=== PATIENT | female | born 1940 | race Caucasian/White ===

== ENCOUNTER 2017-01-20 14:12 | Inpatient (IN) | payer OTHER ==
[~2017-01-20] VITALS: Ht 165.1 cm; Wt 50.3 kg
[~2017-01-20 14:12] MED LIST: ALBUTEROL2.5 MG/3 M INH; ASPIR 8181 MG PO; ATROVENT INH S2.5 ML INH; DILANTIN100 MG PO; DULERA 100 MCG8.8 GM INH; ELAVIL 50 MG TA50 MG PO; ENSURE ORIGINA237 ML PO; EXCEDRIN EXTRA1 EACH PO; FEOSOL325 MG PO; FLEXERIL 10 MG10 MG PO; LACTINEX PACKET1 PKT PO; LOPRESSOR 25 MG25 MG PO; MELATONIN 3 MG1 EAC1 PO; METOPROLOL TART25 MG PO; OCUFLOX5 ML OD; PHENERGAN 25 MG25 M1 PO; PROTONIX 40 MG40 M1 PO; SPIRIVA18 MCG INH; TRAMADOL HCL50 MG PO; ULTRAM50 MG PO; VALIUM 2 MG TAB2 MG PO; ZESTRIL5 MG PO
[2017-01-20 16:33] LABS: HEMOGLOBIN 7.6 gm/dl (12.3-15.3); RED BLOOD COUNT 2.7 M/UL (4.00-5.10); WHITE BLOOD COUNT 5.9 K/UL (4.5-11.0)
[2017-01-21 02:15] LABS: HEMOGLOBIN 7.9 gm/dl (12.3-15.3)
[2017-01-21 09:08] LABS: HEMOGLOBIN 7.8 gm/dl (12.3-15.3); RED BLOOD COUNT 2.75 M/UL (4.00-5.10); WHITE BLOOD COUNT 8.7 K/UL (4.5-11.0)
[2017-01-21 10:52] LABS: HEMOGLOBIN 7.3 gm/dl (12.3-15.3)
[2017-01-21] MEDS ORDERED: NEURONTIN 100100 MG PO (13:17)
[2017-01-21] MEDS ORDERED: AMITRIPTYLINE H50 MG PO (13:19)
[2017-01-22 07:10] LABS: HEMOGLOBIN 8.9 gm/dl (12.3-15.3); RED BLOOD COUNT 3.15 M/UL (4.00-5.10); WHITE BLOOD COUNT 5.6 K/UL (4.5-11.0)
[2017-01-24 05:05] LABS: HEMOGLOBIN 9.4 gm/dl (12.3-15.3); RED BLOOD COUNT 3.3 M/UL (4.00-5.10)
--- NOTE | 2017-01-25 03:00 | NUR ---
CALLED TO ROOM PER EARLY INTERVENTION SPECIALIST~ NEEDED ASSISTANCE STRAIGHTENING PT IN BED, AND STATES BP READING LOW AT 70/30. UPON ENTRANCE NOTED PT SLUMPED TO LEFT SIDE. COLOR ASHEN. PT RESPONDED WHEN NAME CALLED, APPEARED VERY DROWSY, STATING "YEAH". STRAIGHTENED IN BED, BP READING 127/77, NOTED PT NOW UNRESPONSIVE, RESP BECAME AGONAL. PULSE VERY DIFFICULT TO PALPATE. CALLED FOR ASSISTANCE AND CALLED GRAIN DRIER. TEAM ARRIVED, DISCUSSED HISTORY. PT BECAME PULSELESS, VERY THREADY FEMORAL PULSE NOTED. CODE BLUE INITIATED. SEE CODE SHEET.
[2017-01-25 03:28] LABS: HEMOGLOBIN 9.4 gm/dl (12.3-15.3); RED BLOOD COUNT 3.25 M/UL (4.00-5.10)
[2017-01-25 03:30] LABS: WHITE BLOOD COUNT 15.2 K/UL (4.5-11.0)
[2017-01-26 04:43] LABS: HEMOGLOBIN 8.9 gm/dl (12.3-15.3); RED BLOOD COUNT 3.1 M/UL (4.00-5.10)
[2017-01-27 04:08] LABS: HEMOGLOBIN 8.3 gm/dl (12.3-15.3); RED BLOOD COUNT 2.95 M/UL (4.00-5.10)
[2017-01-27 04:09] LABS: WHITE BLOOD COUNT 6.5 K/UL (4.5-11.0)
[2017-01-28 04:24] LABS: HEMOGLOBIN 8.2 gm/dl (12.3-15.3); RED BLOOD COUNT 2.91 M/UL (4.00-5.10)
[2017-01-28 04:25] LABS: WHITE BLOOD COUNT 4.6 K/UL (4.5-11.0)
[2017-01-29 03:22] LABS: HEMOGLOBIN 8.5 gm/dl (12.3-15.3); RED BLOOD COUNT 3.01 M/UL (4.00-5.10)
[2017-01-30 04:29] LABS: HEMOGLOBIN 8.2 gm/dl (12.3-15.3); RED BLOOD COUNT 2.86 M/UL (4.00-5.10); WHITE BLOOD COUNT 5.8 K/UL (4.5-11.0)
[2017-01-31 03:24] LABS: HEMOGLOBIN 8.2 gm/dl (12.3-15.3); RED BLOOD COUNT 2.91 M/UL (4.00-5.10)
[2017-02-01 04:19] LABS: HEMOGLOBIN 8.2 gm/dl (12.3-15.3); RED BLOOD COUNT 2.87 M/UL (4.00-5.10)
[2017-02-01 04:20] LABS: WHITE BLOOD COUNT 7.6 K/UL (4.5-11.0)
[2017-02-01] MEDS ORDERED: DIGOX125 MCG PO (11:58)
[2017-02-06 06:03] LABS: HEMOGLOBIN 7.8 gm/dl (12.3-15.3)
[2017-02-07 05:54] LABS: HEMOGLOBIN 8.6 gm/dl (12.3-15.3); RED BLOOD COUNT 2.9 M/UL (4.00-5.10); WHITE BLOOD COUNT 10.3 K/UL (4.5-11.0)
[2017-02-08 06:04] LABS: HEMOGLOBIN 8.7 gm/dl (12.3-15.3); WHITE BLOOD COUNT 8.7 K/UL (4.5-11.0)
[2017-02-09 05:01] LABS: HEMOGLOBIN 8.6 gm/dl (12.3-15.3); RED BLOOD COUNT 2.95 M/UL (4.00-5.10); WHITE BLOOD COUNT 11.9 K/UL (4.5-11.0)
--- NOTE | 2017-02-09 09:33 | NUR ---
AT 0358 ON 02/09/17 I WAS NOTIFIED FROM TELEMETRY THAT THE PATIENT HAD AN O2 SATURATION OF 79%. I IMMEDIATELY WENT INTO THE ROOM AND HAD THE AIDE GET AN OXYGEN SATURATION. I INCREASED THE PATIENT'S OXYGEN TO 3.5 LITERS NASAL CANNULA AND IN WHICH THE SAT ONLY WENT UP TO 81-82%. THE MD CONVENTIONS RESERVATIONIST WAS NOTIFIED FOR A CHEST X-RAY AND AN ODER TO TITRATE THE OXYGEN TO MAINTAIN THE SATS GREATER THAN 90%. AT THAT POINT THE PATIENT WAS BEGINNING TO BECOME LETHARGIC AND SLOW TO RESPOND. AN FOREST FIRE FIGHTER WAS CALLED AT 0428 IN WHICH A 1 LITER BOLUS WAS STARTED. THE FOREST FIRE FIGHTER THEN PROGRESSED INTO A CODE IN WHICH INTUBATION AND ACLS WERE NEEDED. THE PATIENT UNFORTUNATELY AT [address] PEREZ[address]
== END 2017-02-09 05:00 | disposition expired | DRG 207 ==
LOC: ER1 14:12 → ZEROF 19:08 → M/S 19:08 → CCU 01-23 11:32 → PROG CARE 02-01 17:54 → M/S 02-03 20:42
PROVIDERS: Emergency Medicine; Hospitalist; Internal Medicine; Internal Medicine Pulmonary Disease; ADMIT Family Medicine
PROC: 05HM33Z Insertion of Infusion Device into Right Internal Jugular Vein, Percutaneous Approach (ICD-10-PCS; 2017-01-21)
PROC: 30233N1 Transfusion of Nonautologous Red Blood Cells into Peripheral Vein, Percutaneous Approach (ICD-10-PCS; 2017-01-21)
PROC: 0BH17EZ Insertion of Endotracheal Airway into Trachea, Via Natural or Artificial Opening (ICD-10-PCS; principal; 2017-01-25)
PROC: 5A12012 Performance of Cardiac Output, Single, Manual (ICD-10-PCS; 2017-01-25)
PROC: 5A1955Z Respiratory Ventilation, Greater than 96 Consecutive Hours (ICD-10-PCS; 2017-01-25)
PROC: 5A12012 Performance of Cardiac Output, Single, Manual (ICD-10-PCS; 2017-02-09)
PROC: 0BH17EZ Insertion of Endotracheal Airway into Trachea, Via Natural or Artificial Opening (ICD-10-PCS; 2017-02-09)
PROC: 5A2204Z Restoration of Cardiac Rhythm, Single (ICD-10-PCS; 2017-02-09)
PROC: 0D9670Z Drainage of Stomach with Drainage Device, Via Natural or Artificial Opening (ICD-10-PCS; 2017-02-09)
DX: J96.21 Acute and chronic respiratory failure with hypoxia (principal); I50.23 Acute on chronic systolic (congestive) heart failure; G93.41 Metabolic encephalopathy; I21.4 Non-ST elevation (NSTEMI) myocardial infarction; N17.9 Acute kidney failure, unspecified; E87.2 Acidosis; E87.1 Hypo-osmolality and hyponatremia; D62 Acute posthemorrhagic anemia; I13.0 Hypertensive heart and chronic kidney disease with heart failure and stage 1 through stage 4 chronic kidney disease, or unspecified chronic kidney disease; N18.4 Chronic kidney disease, stage 4 (severe); E44.0 Moderate protein-calorie malnutrition; K56.7 Ileus, unspecified; Z68.1 Body mass index [BMI] 19.9 or less, adult; I47.2 Ventricular tachycardia; S70.02XA Contusion of left hip, initial encounter; J96.22 Acute and chronic respiratory failure with hypercapnia; K75.9 Inflammatory liver disease, unspecified; J44.9 Chronic obstructive pulmonary disease, unspecified; R57.0 Cardiogenic shock; G40.909 Epilepsy, unspecified, not intractable, without status epilepticus; E16.2 Hypoglycemia, unspecified; E87.5 Hyperkalemia; M85.80 Other specified disorders of bone density and structure, unspecified site; M85.89 Other specified disorders of bone density and structure, multiple sites; W18.30XA Fall on same level, unspecified, initial encounter; Z95.810 Presence of automatic (implantable) cardiac defibrillator; Z79.82 Long term (current) use of aspirin; Z79.899 Other long term (current) drug therapy; Z87.891 Personal history of nicotine dependence; Z88.1 Allergy status to other antibiotic agents; Z88.0 Allergy status to penicillin; D63.1 Anemia in chronic kidney disease; D69.6 Thrombocytopenia, unspecified; Z99.81 Dependence on supplemental oxygen; I25.5 Ischemic cardiomyopathy; I08.0 Rheumatic disorders of both mitral and aortic valves; E78.5 Hyperlipidemia, unspecified; G89.4 Chronic pain syndrome; Z90.49 Acquired absence of other specified parts of digestive tract; Y92.013 Bedroom of single-family (private) house as the place of occurrence of the external cause; Z91.81 History of falling; S49.92XA Unspecified injury of left shoulder and upper arm, initial encounter; S09.90XA Unspecified injury of head, initial encounter; S19.9XXA Unspecified injury of neck, initial encounter; I25.10 Atherosclerotic heart disease of native coronary artery without angina pectoris; E86.0 Dehydration; E83.42 Hypomagnesemia; E87.6 Hypokalemia; I49.01 Ventricular fibrillation
CPT/HCPCS: ECHO; 31500; 36415; 36430; 36600; 70450; 71010; 72125; 72192; 73030; 73080; 73502; 73552; 74000; 80048; 80053; 80162; 80185; 80202; 80307; 81001; 82272; 82533; 82550; 82553; 82607; 82728; 82803; 82962; 83540; 83550; 83605; 83735; 83874; 83880; 84132; 84439; 84443; 84466; 84484; 85014; 85018; 85025; 85027; 85045; 85379; 85610; 85730; 86140; 86850; 86870; 86900; 86901; 86902; 86920; 86922; 87040; 87070; 87086; 87205; 92526; 92610; 92950; 93005; 93306; 93970; 94002; 94003; 94640; 94660; 94664; 96374; 96375; 96376; 97110; 97530; 99285; A4628; C9113; G0378; G0480; J0171; J0282; J0330; J1120; J1940; J2270; J2405; J2550; J3370; J7030; J7040; J7050; J7070; P9016